=== PATIENT | female | born 1985 | race Two or more races ===

== ENCOUNTER 2018-06-08 07:56 | Emergency (ER) | payer SELFPAY ==
[~2018-06-08] VITALS: Ht 170.2 cm; Wt 73.0 kg
[2018-06-08 08:54] LABS: BASOPHILS % 1.2 % (0.0-2.0); EOSINOPHILS % 2.6 % (0.0-5.0); HEMATOCRIT. 36.4 % (36.0-48.0); HEMOGLOBIN. 12.8 g/dL (12.0-16.0); LYMPHOCYTES % 31.8 % (20.0-50.0); MEAN CORPUSCULAR HEMOGLOBIN 31.3 pg (28.0-32.0); MEAN CORPUSCULAR VOLUME 89.3 fL (81.0-99.0); MONOCYTES % 11.6 % (2.0-8.0); NEUTROPHILS % 52.8 % (40.0-76.0); PLATELET 368 x1000/uL (130-400); RED BLOOD CELL COUNT 4.07 mill/uL (4.2-5.4); RED CELL DISTRIBUTION WIDTH 13.4 % (11.6-14.6)
[2018-06-08 08:57] LABS: CHLORIDE 104 mEq/L (98-107)
[2018-06-08 10:07] VITALS: BP 98/61
== END 2018-06-08 10:10 | disposition home or self-care (01) ==
LOC: ER 07:56
DX: R07.89 Other chest pain (principal)
CPT/HCPCS: 36415; 71045; 81025; 84484; 93005; 99284